=== PATIENT | male | born 1990 | race Caucasian/White ===

== ENCOUNTER 2022-05-02 20:32 | Emergency (ER) | payer OTHER ==
[~2022-05-02] VITALS: Ht 175.3 cm; Wt 77.3 kg
== END 2022-05-02 21:55 | disposition home or self-care (01) ==
LOC: ED 20:32
PROC: 0HQ1XZZ Repair Face Skin, External Approach (ICD-10-PCS; principal; 2022-05-02)
DX: S01.111A Laceration without foreign body of right eyelid and periocular area, initial encounter (principal); W22.8XXA Striking against or struck by other objects, initial encounter; Y93.66 Activity, soccer
CPT/HCPCS: 12002; 99282-25

== ENCOUNTER 2022-10-20 10:01 | Emergency (ER) | payer OTHER ==
[~2022-10-20] VITALS: Ht 175.3 cm; Wt 77.3 kg
[2022-10-20] MEDS ORDERED: HYDROCODON-ACE1 EA11 PO (11:03)
[2022-10-20 11:46] VITALS: BP 137/81
== END 2022-10-20 11:48 | disposition home or self-care (01) ==
LOC: ED 10:01
DX: S82.61XA Displaced fracture of lateral malleolus of right fibula, initial encounter for closed fracture (principal); X50.1XXA Overexertion from prolonged static or awkward postures, initial encounter
CPT/HCPCS: 73610; A9270; J1170; J7030